=== PATIENT | male | born 1990 | race Caucasian/White ===

== ENCOUNTER 2017-05-07 10:05 | Emergency (ER) | payer SELFPAY ==
[~2017-05-07] VITALS: Ht 182.9 cm; Wt 84.0 kg
[~2017-05-07 10:05] MED LIST: CYCL-36 PO; DICL75 PO
[2017-05-07 10:09] VITALS: BP 126/87; PULSE 96; RESP 16; TEMP 97.7; O2SAT 100
[2017-05-07] MEDS ORDERED: TETANUS/DIPHTHERIA TOXOID ADULT 0.5 ML VIAL IM ONE (10:30)
[2017-05-07] MEDS ORDERED: CIPROFLOXACIN 500 MG TAB PO ONE (10:30)
--- NOTE | 2017-05-07 10:33 | PD ---
HPI Chief Complaint: Laceration/Skin Injury Time Seen by Provider: 10:14 Travel History International Travel<30 days: No Contact w/Intl Traveler<30days: No Traveled to known affect area: No History of Present Illness HPI Patient is a 26-year-old male who presents to emergency room with complaints of left foot pain. Patient reports that last night around 6:30 PM, he was walking in his flip-flops and stepped onto a nail. Patient reports that the nail did break through his skin and he had to "twist the nail out." Reports that the nail was brand new with no rust. Tetanus is up-to-date. Patient reports pain with ambulation to the area of the nail wound PFSH Past Medical History Medical History: Denies Significant Hx Cancer: No Cardiovascular Problems: No Cerebrovascular Accident: No Diabetes: No Diminished Hearing: No Endocrine: No Genitourinary: No Immune Disorder: No Musculoskeletal: No Neurologic: Yes Psychiatric: No Reproductive: No Respiratory: No Migraines: Yes Seizures: No Past Surgical History Pacemaker: No Social History Alcohol Use: Yes (OCCASIONAL) Tobacco Use: No Substance Use: No Allergies-Medications (Allergen,Severity, Reaction): Coded Allergies: clindamycin (Unverified Allergy, Intermediate, 05/07/17) Reported Meds & Prescriptions Reported Meds & Active Scripts Active Ibuprofen 600 Mg Tab 600 Mg PO Q6H PRN Cipro (Ciprofloxacin HCl) 500 Mg Tab 500 Mg PO BID 10 Days Review of Systems General / Constitutional: No: Fever Eyes: No: Visual changes HENT: No: Headaches Cardiovascular: No: Chest Pain or Discomfort Respiratory: No: Shortness of Breath Gastrointestinal: No: Abdominal Pain Genitourinary: No: Dysuria Musculoskeletal: Positive: Pain (left foot pain) Skin: No Rash Neurologic: No: Weakness Psychiatric: No: Depression Endocrine: No: Polydipsia Hematologic/Lymphatic: No: Easy Bruising Physical Exam Narrative GENERAL: Well-nourished, well-developed patient. SKIN: Focused skin assessment warm/dry. HEAD: Normocephalic. EYES: No scleral icterus. No injection or drainage. NECK: Supple, trachea midline. No JVD or lymphadenopathy. CARDIOVASCULAR: Regular rate and rhythm without murmurs, gallops, or rubs. RESPIRATORY: Breath sounds equal bilaterally. No accessory muscle use. GASTROINTESTINAL: Abdomen soft, non-tender, nondistended. MUSCULOSKELETAL: No cyanosis, or edema. Patient with small area of open skin from nail puncture wound to plantar surface of left foot, there is no area of cellulitis, drainage, redness or erythema. Patient with good range of motion to all digits of toes, pulses intact, neurovascularly intact, normal ROM to left ankle, no signs of foreign body BACK: Nontender without obvious deformity. No CVA tenderness. Data Data Last Documented VS Vital Signs Date Time Temp Pulse Resp B/P (MAP) Pulse Ox O2 Delivery O2 Flow Rate FiO2 05/07/17 10:09 97.7 96 16 126/87 (100) 100 Orders Orders Foot, Complete ([id number]) (05/07/17 ) Tetanus/Diphtheria Tox Adult (Tetanus/Di (05/07/17 10:30) Ciprofloxacin (Cipro) (05/07/17 10:30) Crutches (05/07/17 11:09) MDM Medical Decision Making Medical Screen Exam Complete: Yes Emergency Medical Condition: Yes Interpretation(s) Vital Signs Date Time Temp Pulse Resp B/P (MAP) Pulse Ox O2 Delivery O2 Flow Rate FiO2 05/07/17 10:09 97.7 96 16 126/87 (100) 100 Differential Diagnosis Differential includes infection from FB to left foot Narrative Course Patient is a 26-year-old male who suffered a foreign body (nail in foot) to his left foot yesterday. Patient removed this this foreign body last night, reports pain to his left foot. There is no obvious foreign body, reports pains to the plantar aspect of his left foot. X-ray of the foot ordered to rule out foreign body. We'll update patient's tetanus. We'll start patient on Cipro to cover for pseudomonas. Strict instructions as well as signs and symptoms for patient to return to the hospital was reviewed with patient in detail. Last Impressions Foot X-Ray 05/07/17 0000 Signed Impressions: Service Date/Time: , May 07, 2017 10:46 - CONCLUSION: Unremarkable examination of the left foot. No foreign body is noted. Kj Salinas MD Xray of foot reviewed - no fb. Plan to discharge home with script for cipro. Patient will return to ER in 48 hours for re-evaluation of wound. Signs and symptoms of when to return to the ER was reviewed with patient in detail. Diagnosis Primary Impression: Nail wound of left foot Qualified Codes: S91.332A - Puncture wound without foreign body, left foot, initial encounter Patient Instructions: General Instructions Additional Instructions: Please return to the emergency room or to primary care doctor's office in 48 hours for wound check Return to emergency room earlier if symptoms worsen or progress or if you develop pain out of proportion to injury or if you develop any fevers or chills or streaking from the wound Please take all antibiotics as prescribed Return to the emergency room as needed Med/Other Pt SpecificInfo: Prescription(s) given Scripts Oxycodone-Acetaminophen (Percocet) 5-325 mg Tab 1 TAB PO Q6H Y for PAIN, #10 TAB 0 Refills Prov: Tova Hernández DO 05/07/17 Ibuprofen (Ibuprofen) 600 Mg Tab 600 MG PO Q6H Y for Pain/Inflammation, #40 TAB 0 Refills Prov: Tova Hernández DO 05/07/17 Ciprofloxacin (Cipro) 500 Mg Tab 500 MG PO BID for Infection for 10 Days, #20 TAB 0 Refills Prov: Tova Hernández DO 05/07/17 Disposition: 01 DISCHARGE HOME Condition: Stable Tova Hernández DO May 07, 2017 10:33
--- NOTE | 2017-05-07 11:04 | RADRPT ---
EXAM DATE/TIME: 05/07/2017 10:46 [facility] COMPARISON: No previous studies available for comparison. INDICATIONS : Left foot pain, stepped on a screw last night, patirnt pulled the screw out. MEDICAL HISTORY : None. SURGICAL HISTORY : None. ENCOUNTER: Initial ACUITY: 2 days PAIN SCORE: 4/10 LOCATION: Left ball of foot FINDINGS: Three view examination of the left foot demonstrates no soft tissue swelling, dislocation, or fractur e. The tarsal bones appear intact. The interphalangeal and metatarsophalangeal joints are intact. The calcaneus is intact. Bony mineralization is normal. CONCLUSION: Unremarkable examination of the left foot. No foreign body is noted. Kj Salinas MD on May 07, 2017 at 11:02 Board Certified Radiologist. This report was verified electronically.
[2017-05-07] MEDS ORDERED: IBUP-232 PO (11:09)
[2017-05-07] MEDS ORDERED: CIPR-9 PO (11:09)
[2017-05-07] MEDS ORDERED: PERC5TAB12 PO (11:16)
== END 2017-05-07 11:23 | disposition home or self-care (01) ==
LOC: PHEFT 10:05
DX: S91.332A Puncture wound without foreign body, left foot, initial encounter (principal); W45.0XXA Nail entering through skin, initial encounter; Y93.01 Activity, walking, marching and hiking; Z23 Encounter for immunization
CPT/HCPCS: 73630; 90471; 90714; 99284; E0113

== ENCOUNTER 2017-10-24 11:38 | Emergency (ER) | payer SELFPAY ==
[~2017-10-24] VITALS: Ht 182.9 cm; Wt 81.5 kg
[~2017-10-24 11:38] MED LIST changes: +CIPR-9 PO; -CYCL-36 PO; -DICL75 PO; +IBUP-232 PO; +PERC5TAB12 PO
[2017-10-24 11:53] VITALS: BP 138/65; PULSE 85; RESP 16; TEMP 97.6; O2SAT 99
--- NOTE | 2017-10-24 13:10 | PD ---
HPI Chief Complaint: Back/ Neck Pain or Injury Time Seen by Provider: 12:50 Travel History International Travel<30 days: No Contact w/Intl Traveler<30days: No Traveled to known affect area: No History of Present Illness HPI 27yo M with no significant PMH presents to the ED with c/o left lower back pain since yesterday after bending down. Said it is a throbbing pain that is nonradiating. Denies any fever, fall, IVDA, cancer, chest pain, sob, n/v, abdominal pain, focal weakness or numbness. Pt said he had similar pain 3-4 times before. PFSH Past Medical History Cancer: No Cardiovascular Problems: No Cerebrovascular Accident: No Diabetes: No Diminished Hearing: No Endocrine: No Genitourinary: No Immune Disorder: No Musculoskeletal: No Neurologic: Yes Psychiatric: No Reproductive: No Respiratory: No Migraines: Yes Seizures: No Past Surgical History Pacemaker: No Social History Alcohol Use: Yes (OCCASIONAL) Tobacco Use: No Substance Use: No Allergies-Medications (Allergen,Severity, Reaction): Coded Allergies: clindamycin (Unverified Allergy, Intermediate, 10/24/17) Reported Meds & Prescriptions Reported Meds & Active Scripts Active Ibuprofen 600 Mg Tab 600 Mg PO Q8HR PRN Review of Systems Except as stated in HPI: all other systems reviewed are Neg Physical Exam Narrative GENERAL: 27yo M in mild distress. SKIN: Focused skin assessment warm/dry. HEAD: Atraumatic. Normocephalic. EYES: Pupils equal and round. No scleral icterus. No injection or drainage. ENT: No nasal bleeding or discharge. Mucous membranes pink and moist. NECK: Trachea midline. No JVD. No midline ttp cervical spine. CARDIOVASCULAR: Regular rate and rhythm. No murmur appreciated. RESPIRATORY: No accessory muscle use. Clear to auscultation. Breath sounds equal bilaterally. GASTROINTESTINAL: Abdomen soft, non-tender, nondistended. BACK: No midline ttp thoracic spine. +TTP L5 and paraspinal muscle L5. MUSCULOSKELETAL: No obvious deformities. No clubbing. No cyanosis. No edema. Negative straight leg test bilaterally. Distal pulses intact. NEUROLOGICAL: Awake and alert. No obvious cranial nerve deficits. Motor grossly within normal limits in all extremities. Sensation intact and equal bilaterally. Normal speech. PSYCHIATRIC: Appropriate mood and affect; insight and judgment normal. Data Data Last Documented VS Vital Signs Date Time Temp Pulse Resp B/P (MAP) Pulse Ox O2 Delivery O2 Flow Rate FiO2 10/24/17 16:14 63 17 106/64 (78) 99 Room Air 10/24/17 11:53 97.6 Orders Orders Diazepam (Valium) (10/24/17 13:15) Ketorolac Inj (Toradol Inj) (10/24/17 13:15) Spine, Lumbar - Ltd (Ap & Lat) (10/24/17 ) Morphine Inj (Morphine Inj) (10/24/17 15:00) Mandatory Outpatient Referral (10/24/17 16:50) MDM Medical Decision Making Medical Screen Exam Complete: Yes Emergency Medical Condition: Yes Interpretation(s) Last Impressions Lumbar Spine X-Ray 10/24/17 0000 Signed Impressions: Service Date/Time: Tuesday, October 24, 2017 15:02 - CONCLUSION: Mild degenerative changes L5-S1. Negative for acute process. Parag Ferguson MD FACR Differential Diagnosis Musculoskeletal pain vs. disc herniation vs. muscle sprain Narrative Course 27yo M with lower back pain after bending over. Seems very musculoskeletal. Pain is localized in lower back and to left of lower back. He does have ttp L5 but no fall or trauma. Pt given valium and toradol and said it did not help. Said there is no pain when he does not move or lies a certain way. Pt is requesting imaging knowing that there is a low yield with xray lumbar spine because I do not suspect fracture. Recommend outpatient MRI LS if pain persist as pt said he felt a pop. No focal neurologic deficits. Xray LS showed mild degenerative changes L5-S1. Negative for acute process. Pain improved with morphine. Feel that if persistent pain, pt will need to follow up with orthopedic and possible outpatient MRI. Do not have any red flags currently to get emergency MRI in the ED. Pt is nontoxic appearing. Return precautions given. Will do mandatory referral since pt has no insurance. Diagnosis Primary Impression: Lower back pain Qualified Codes: M54.5 - Low back pain Referrals: Earl Morillo Jr., MD Patient Instructions: General Instructions Departure Forms: Tests/Procedures Additional Instructions: Please follow up with orthopedic clinic if pain persists. Return to the ED if symptoms worsen. Med/Other Pt SpecificInfo: Prescription(s) given Scripts Ibuprofen (Ibuprofen) 600 Mg Tab 600 MG PO Q8HR Y for PAIN, #20 TAB 0 Refills Prov: Nadine Garza DO 10/24/17 Disposition: 01 DISCHARGE HOME Condition: Stable Nadine Garaz DO Oct 24, 2017 13:10
[2017-10-24] MEDS ORDERED: KETOROLAC TROMETHAMINE 60 MG/2 ML (IM) VIAL IM ONE (13:15)
[2017-10-24] MEDS ORDERED: DIAZEPAM 5 MG TAB PO ONE (13:15)
[2017-10-24] MEDS ORDERED: MORPHINE SULFATE 4 MG/ML INJ IM ONE (15:00)
--- NOTE | 2017-10-24 15:21 | RADRPT ---
EXAM DATE/TIME: 10/24/2017 15:02 [facility] COMPARISON: No previous studies available for comparison. INDICATIONS : Chronic lower back pain. MEDICAL HISTORY : None. SURGICAL HISTORY : None. ENCOUNTER: Initial ACUITY: 1 day PAIN SCORE: 10/10 LOCATION: middle lower back FINDINGS: Two view examination was performed. There are five non-rib bearing vertebral bodies. The vertebral bodies are in normal alignment without evidence of subluxation or scoliosis. Minimal loss of disc sp luis height at L5-S1 with mild degenerative changes. The pedicles are intact. Bony mineralization is normal. No fracture is identified. CONCLUSION: Mild degenerative changes L5-S1. Negative for acute process. Parag Ferguson MD FACR on October 24, 2017 at 15:19 Board Certified Radiologist. This report was verified electronically.
[2017-10-24 16:14] VITALS: BP 106/64; PULSE 63; RESP 17; O2SAT 99
[2017-10-24] MEDS ORDERED: IBUP-232 PO (16:50)
== END 2017-10-24 18:12 | disposition home or self-care (01) ==
LOC: NEPD 11:38
DX: M51.37 Other intervertebral disc degeneration, lumbosacral region (principal)
CPT/HCPCS: 72100; 96372; 99283; J1885; J2270